=== PATIENT | male | born 1980 | race Caucasian/White ===

== ENCOUNTER 2018-07-09 19:48 | Emergency (ER) | payer MEDICAID ==
[~2018-07-09] VITALS: Ht 167.6 cm; Wt 81.6 kg
[2018-07-09 19:54] VITALS: Ht 167.6 cm; Wt 81.6 kg
[2018-07-09] MEDS ORDERED: DIPHTH/TET/ACEL PERTUSS (ADULT) 0.5 ML VIAL IM* ONE (21:30)
[2018-07-09] MEDS ORDERED: LIDOCAINE 4% CR TOP ONE (21:30)
[2018-07-09] MEDS ORDERED: LIDOCAINE 1% (MDV) 20 ML INJ SC ONE (21:30)
[2018-07-09] MEDS ORDERED: IBUPROFEN 600 MG TAB PO ONE (21:30)
[2018-07-09] MEDS ORDERED: IBUP-1542 PO (23:14)
[2018-07-09] MEDS ORDERED: BACI28.34 TOP (23:14)
[2018-07-09 23:40] VITALS: BP 123/73; PULSE 65; RESP 20
--- NOTE | 2018-07-10 01:19 | ERD ---
ER Documentation Chief Complaint Chief Complaint splinter under L index finger nail HPI 38-year-old male presented to the emergency department complaints of wooden splinter subungually to the left index finger which occurred just prior to arrival. Reports associated pain which is moderate in severity and constant. He tried no medication for relief of symptoms at home. He denies any fevers or chills or other symptoms at this time. ROS All systems reviewed and are negative except as per history of present illness. Medications Home Meds Active Scripts Ibuprofen* (Motrin*) 600 Mg Tab, 600 MG PO Q6, #30 TAB Prov:MAINOR JAMISON PA-C 07/09/18 Bacitracin* (Bacitracin Zinc Oint*) 28.35 Gm Oint, 1 APPLIC TOP BID, #1 TUB APPLI TO Prov:MAINOR JAMISON PA-C 07/09/18 Allergies Allergies: Coded Allergies: No Known Allergy (Unverified , 07/09/18) PMhx/Soc Medical and Surgical Hx: pt denies Medical Hx, pt denies Surgical Hx History of Surgery: No Anesthesia Reaction: No Hx Neurological Disorder: No Hx Respiratory Disorders: No Hx Cardiac Disorders: No Hx Psychiatric Problems: No Hx Miscellaneous Medical Probl: No Hx Alcohol Use: Yes (2 BOTTLES AVERAGE DAILY) Hx Substance Use: Yes (COCAINE) Hx Tobacco Use: Yes Smoking Status: Current every day smoker FmHx Family History: No diabetes Physical Exam Vitals Vital Signs Date Temp Pulse Resp B/P (MAP) Pulse Ox O2 O2 Flow FiO2 Time Delivery Rate 07/09/18 98.4 65 20 123/73 100 Room Air 23:40 (90) 07/09/18 98.3 63 20 132/77 100 19:54 (95) Physical Exam Const: No acute distress Head: Atraumatic Eyes: Normal Conjunctiva ENT: Normal External Ears, Nose and Mouth. Neck: Full range of motion. No meningismus. Resp: No respiratory distress. Skin: No petechiae or rashes Back: No midline or flank tenderness Ext: No cyanosis, or edema. Subungual linear foreign body noted to the left index finger. Neur: Awake and alert Psych: Normal Mood and Affect Results 24 hrs Current Medications Medications Dose Sig/Albert Start Time Status Last (Trade) Ordered Route PRN Stop Time Admin Dose Reason Admin Ibuprofen 600 mg ONCE ONCE 07/09/18 DC 07/09/18 (Motrin) PO 21:30 21:34 07/09/18 21:31 Diphtheria/ 0.5 ml ONCE ONCE 07/09/18 DC 07/09/18 Tetanus/Acell IM* 21:30 21:35 Pertussis 07/09/18 21:31 (Adacel) Lidocaine 1 applic ONCE ONCE 07/09/18 DC 07/09/18 (Lmx 4% Plus) TOP 21:30 21:35 07/09/18 21:31 Lidocaine 20 ml ONCE ONCE 07/09/18 DC (Xylocaine SC 21:30 1% (Mdv) 20 07/09/18 21:31 ml) Procedures/MDM 38-year-old male presented to the emergency department for subungual foreign body of the left index finger. After the full risks, benefits, alternatives were explained to the patient he gave verbal agreement for foreign body removal. Foreign Body Removal Performed by: me Indication: retained foreign body Location: Subungual lead to the left index finger Anesthesia: Digital block using 1% lidocaine Technique: Irrigated. Blunt dissection. Foreign bodies recovered: Linear wooden object Post-procedure assessment: foreign body removed. No complications. Neurovascularly intact post procedure Patient tolerance: Patient tolerated the procedure well with no immediate compl ications 48 hour wound check. Scar minimization instructions given. No evidence of life-threatening pathology at time of discharge. Pt/family in agreement with discharge plan/diagnosis. Pt/family advised to return immediately with any new or worsening symptoms. Follow-up with primary care physician within the next 1-2 days. Departure Diagnosis: Primary Impression: Subungual foreign body of finger Encounter type: initial encounter Qualified Codes: S60.459A - Superficial foreign body of unspecified finger, initial encounter Condition: Fair Patient Instructions: Foreign Body, Soft Tissue (Removed) Referrals: [facility] YOU HAVE RECEIVED A MEDICAL SCREENING EXAM AND THE RESULTS INDICATE THAT YOU DO NOT HAVE A CONDITION THAT REQUIRES URGENT TREATMENT IN THE EMERGENCY DEPARTMENT. FURTHER EVALUATION AND TREATMENT OF YOUR CONDITION CAN WAIT UNTIL YOU ARE SEEN IN YOUR DOCTORS OFFICE WITHIN THE NEXT 1-2 DAYS. IT IS YOUR RESPONSIBILITY TO MAKE AN APPOINTMENT FOR FOLOW-UP CARE. IF YOU HAVE A PRIMARY DOCTOR --you should call your primary doctor and schedule an appointment IF YOU DO NOT HAVE A PRIMARY DOCTOR YOU CAN CALL OUR PHYSICIAN REFERRAL HOTLINE AT IF YOU CAN NOT AFFORD TO SEE A PHYSICIAN YOU CAN CHOSE FROM THE FOLLOWING [facility] [address] [facility]. [facility] [address] [facility]. [facility] [address] [facility]. [facility] [address] [facility]. [facility] [phone] [address] [facility]. [facility] [address] Additional Instructions: Call your primary care doctor TOMORROW for an appointment during the next 1-2 days.See the doctor sooner or return here if your condition worsens before your appointment time. MAINOR JAMISON PA-C Jul 10, 2018 01:19
== END 2018-07-09 23:40 | disposition home or self-care (01) ==
LOC: FTE 19:48
DX: S60.451A Superficial foreign body of left index finger, initial encounter (principal); F17.210 Nicotine dependence, cigarettes, uncomplicated; W45.8XXA Other foreign body or object entering through skin, initial encounter; Y92.9 Unspecified place or not applicable; Z23 Encounter for immunization
CPT/HCPCS: 64450; 90471; 90715; Z7502; Z7610